=== PATIENT | male | born 1960 | race Caucasian/White ===

== ENCOUNTER 2020-12-04 19:55 | Emergency (ER) | payer BC ==
[~2020-12-04] VITALS: Ht 175.3 cm; Wt 98.0 kg
[2020-12-04] MEDS ORDERED: TRAZODONE HCL100 MG PO (20:21)
[2020-12-04] MEDS ORDERED: PANTOPRAZOLE SO40 MG PO (20:21)
[2020-12-04] MEDS ORDERED: SERTRALINE HCL50 MG PO (20:22)
== END 2020-12-04 23:12 | disposition home or self-care (01) ==
LOC: ED 19:55
DX: H53.2 Diplopia (principal); Z87.891 Personal history of nicotine dependence; K21.9 Gastro-esophageal reflux disease without esophagitis; G47.00 Insomnia, unspecified; Z79.899 Other long term (current) drug therapy
CPT/HCPCS: 70450; 80053; 85025; 99285-25

== ENCOUNTER 2024-06-02 07:57 | Emergency (ER) | payer OTHER, BC ==
[~2024-06-02] VITALS: Ht 175.3 cm; Wt 104.4 kg
[~2024-06-02 07:57] MED LIST: PANTOPRAZOLE SO40 MG PO; SERTRALINE HCL50 MG PO; TRAZODONE HCL100 MG PO
[2024-06-02] MEDS ORDERED: COLCRYS0.6 MG PO (08:57)
[2024-06-02] MEDS ORDERED: ALLOPURINOL100 MG PO (08:57)
[2024-06-02] MEDS ORDERED: SILDENAFIL CIT100 MG PO (08:58)
[2024-06-02 09:30] VITALS: BP 138/89
== END 2024-06-02 09:31 | disposition home or self-care (01) ==
LOC: ED 07:57
DX: M54.50 Low back pain, unspecified (principal); G47.00 Insomnia, unspecified; K21.9 Gastro-esophageal reflux disease without esophagitis; Z79.899 Other long term (current) drug therapy; Z87.891 Personal history of nicotine dependence
CPT/HCPCS: 99283

== ENCOUNTER 2024-12-20 09:36 | Emergency (ER) | payer OTHER, BC ==
[~2024-12-20] VITALS: Ht 180.3 cm; Wt 106.0 kg
[~2024-12-20 09:36] MED LIST changes: +ALLOPURINOL100 MG PO; +COLCRYS0.6 MG PO; +SILDENAFIL CIT100 MG PO
[2024-12-20] MEDS ORDERED: IBU600 MG PO (10:02)
[2024-12-20] MEDS ORDERED: HYDROCODON-ACE1 EA10 PO (10:02)
[2024-12-20 10:10] VITALS: BP 128/89
== END 2024-12-20 10:10 | disposition home or self-care (01) ==
LOC: ED 09:36
DX: M54.6 Pain in thoracic spine (principal); X50.0XXA Overexertion from strenuous movement or load, initial encounter; Z87.891 Personal history of nicotine dependence; Z79.899 Other long term (current) drug therapy
CPT/HCPCS: 99283

== ENCOUNTER 2025-04-13 14:42 | Emergency (ER) | payer MEDICARE, OTHER ==
[~2025-04-13] VITALS: Ht 180.3 cm; Wt 106.0 kg
[~2025-04-13 14:42] MED LIST changes: +HYDROCODON-ACE1 EA10 PO; +IBU600 MG PO
[2025-04-13] MEDS ORDERED: ACETAMINOPHEN 500 MG TAB PO ONE (15:30)
[2025-04-13 15:32] LABS: BASOPHILS 0.5 % (0.2-1.2); EOSINOPHILS 1.8 % (0.8-7.0); LYMPHOCYTES 24.1 % (21.8-53.1); MCH 28.1 PG (25.7-32.2); MCHC 32.8 g/dL (32.3-36.5); MCV 85.7 fL (79.0-92.2); MONOCYTES 8.1 % (5.3-12.2); NEUTROPHILS 65.2 % (34.0-67.9); RBC 4.88 M/uL (4.63-6.08)
[2025-04-13 15:47] LABS: ALT (SGPT) 31.0 U/L (14-59); AST (SGOT) 17.0 U/L (15-37); GLOMERULAR FILTRATION RATE,EST 46.0 mL/min (>60); PROTEIN, TOTAL 7.1 g/dL (6.4-8.2); UREA NITROGEN 21.0 mg/dL (7-18)
[2025-04-13 16:04] LABS: BLOOD/HGB, URINE NEGATIVE (Negative); KETONE, URINE NEGATIVE (Negative); LEUK ESTERASE, URINE NEGATIVE (negative); NITRITE, URINE NEGATIVE (negative)
[2025-04-13] MEDS ORDERED: SODIUM CHLORIDE 0.9% 1,000 ML IV PRN (16:15)
[2025-04-13 16:16] LABS: BACTERIA, URINE NONE SEEN /hpf (negative); CASTS, URINE NONE SEEN \\lpf; CRYSTALS, URINE NONE SEEN (0-1+); EPITHELIAL CELLS, URINE 0 /lpf (0-1+); REFLEX CULTURE, URINE No (No)
[2025-04-13 17:22] VITALS: BP 139/96
== END 2025-04-13 17:28 | disposition home or self-care (01) ==
LOC: ED 14:42
PROVIDERS: Emergency Medicine
DX: I10 Essential (primary) hypertension (principal); K21.9 Gastro-esophageal reflux disease without esophagitis; M10.9 Gout, unspecified; Z87.891 Personal history of nicotine dependence; Z79.899 Other long term (current) drug therapy
CPT/HCPCS: 36415; 70450; 80053; 81001; 84443; 85025; 99284-25; A9270; J7030